=== PATIENT | female | born 1995 | race Caucasian/White ===

== ENCOUNTER 2017-09-02 17:21 | Emergency (ER) | payer OTHER ==
[~2017-09-02] VITALS: Ht 162.6 cm; Wt 60.8 kg
[2017-09-02 19:58] VITALS: BP 119/70
[2017-09-02 20:14] LABS: UA SPECIFIC GRAVITY 1.025 (1.005-1.035); microscopic required? YES; urine erythrocyte NEGATIVE (NEGATIVE)
== END 2017-09-02 22:05 | disposition home or self-care (01) ==
LOC: ED 17:21
PROVIDERS: Specialist
DX: O26.893 Other specified pregnancy related conditions, third trimester (principal); K80.50 Calculus of bile duct without cholangitis or cholecystitis without obstruction; Z3A.00 Weeks of gestation of pregnancy not specified
CPT/HCPCS: J2270; J2765